=== PATIENT | female | born 1935 | race Caucasian/White ===

== ENCOUNTER 2018-08-27 12:24 | Emergency (ER) | payer MEDICARE, OTHER ==
--- NOTE | 2018-08-27 13:40 | CR ---
[id number] RAD/RAD Pelvis 1-2V Exam: RAD Pelvis 1-2V Indication:FALL, PELVIC PAIN. Comparison: No prior imaging for comparison. Discussion: Rounded lucent structure projects over the pelvis. Correlate for history of pessary. No radiographically evident fracture in the pelvis or proximal femurs. Both femoroacetabular articulations are in normal alignment. There is continued clinical suspicion of a fracture, CT is recommended. Impression: Negative for fracture or other acute findings. Franko Morocho MD 08/27/18 7547 Thank you for allowing us to participate in the care of your patient.
[2018-08-27 13:41] LABS: ANION GAP 14.4 mmol/L (10-20); CHLORIDE,CL 104 mmol/L (98-107); SODIUM,NA 141 mmol/L (136-145)
--- NOTE | 2018-08-27 13:41 | CR ---
[id number] RAD/RAD Chest PA or AP 1V EXAM: RAD Chest PA or AP 1V INDICATION: CONFUSION. COMPARISON: None. DISCUSSION: Mild cardiomegaly and central vascular congestion. Mass projects over the cardiac silhouette, most consistent with a hiatus hernia. No effusion, edema, pneumothorax, or pneumonia. IMPRESSION: No acute findings in the chest. Other findings are described above. Franko Morocho MD 08/27/18 6836 Thank you for allowing us to participate in the care of your patient.
[2018-08-27] MEDS ORDERED: Sulfamethoxazole/Trimethoprim 800-160 MG Tab PO ONE (14:15)
--- NOTE | 2018-08-27 14:51 | EDM.PDOC ---
ED HPI GENERAL MEDICAL PROBLEM - General Chief Complaint: General Time Seen by Provider: 08/27/18 12:30 Source of Information: Reports: Patient History Limitations: Reports: No Limitations - History of Present Illness INITIAL COMMENTS - FREE TEXT/NARRATIVE: Pt. presents to ER with complaints of fall. She states that she was walking over the [employer] to do some shopping when she became weak and fell. She states that she has been weak for the past day. Denies any chest pain or shortness of breath. She states that she did not strike her head. She states that she recalls the entire event. She denies any nausea of vomiting. No headache. Denies any dysuria. No urinary frequency. She resides at [facility] and has home health. Pt. states that she gets her medications from [facility] and has them delivered. EMS states that she was alert and oriented during transport. She initially complained of some buttocks/pelvic pain but this had resolved by the time she got to ER. Onset: Today Onset Date: 08/27/18 Location: Reports: Pelvis - Related Data Allergies Allergy/AdvReac Type Severity Reaction Status Date / Time Penicillins Allergy Rash Verified 11/04/15 15:35 Home Meds: Home Meds Aspirin 325 mg PO DAILY 06/25/13 [History] Docusate Sodium [Colace] 100 mg PO DAILY 06/25/13 [History] Insulin Glarg,Human.Rec.Analog [Lantus] 0 unit SUBCUT DAILY 06/25/13 [History] Loperamide [Imodium] 2 mg PO QID PRN 06/25/13 [History] Loratadine [Claritin] 10 mg PO DAILY 06/25/13 [History] Metoprolol Succinate [Toprol XL] 25 mg PO DAILY 06/25/13 [History] Multivit-Min/FA/Lycopene/Lut [Centrum Silver] 1 each PO DAILY 06/25/13 [History] Nitroglycerin [Nitrostat] 0.4 mg SL ASDIRECTED PRN 06/25/13 [History] Ondansetron [Zofran] 8 mg PO Q8H PRN 06/25/13 [History] Sennosides [Perdiem] 15 mg PO BEDTIME 06/25/13 [History] atorvaSTATin [Lipitor] 60 mg PO BEDTIME 06/25/13 [History] glipiZIDE/Metformin HCl [GlipiZIDE-Metformin 2.5-500 MG] 1 each PO BID 06/25/13 [History] Past Medical History Cardiovascular History: Reports: High Cholesterol, Hypertension Endocrine/Metabolic History: Reports: Diabetes, Type II Hematologic History: Reports: None Immunologic History: Reports: None Oncologic (Cancer) History: Reports: None - Past Surgical History Oncologic Surgical History: Reports: None Social & Family History - Family History Family Medical History: Unobtainable ED ROS GENERAL - Review of Systems Review Of Systems: See Below Constitutional: Reports: No Symptoms HEENT: Reports: No Symptoms Respiratory: Reports: No Symptoms Cardiovascular: Reports: No Symptoms Endocrine: Reports: No Symptoms GI/Abdominal: Reports: No Symptoms : Reports: No Symptoms Musculoskeletal: Reports: Other (pelvic/buttock pain) Skin: Reports: No Symptoms Neurological: Reports: No Symptoms Psychiatric: Reports: No Symptoms Hematologic/Lymphatic: Reports: No Symptoms Immunologic: Reports: No Symptoms ED EXAM, GENERAL - Physical Exam Exam: See Below Exam Limited By: No Limitations General Appearance: Alert, WD/WN, No Apparent Distress Eye Exam: Bilateral Eye: EOMI, Normal Fundi, Normal Inspection, PERRL Ears: Normal External Exam, Normal Canal, Hearing Grossly Normal, Normal TMs Nose: Normal Inspection, Normal Mucosa, No Blood Throat/Mouth: Normal Inspection, Normal Lips, Normal Teeth, Normal Gums, Normal Oropharynx, Normal Voice, No Airway Compromise Head: Atraumatic, Normocephalic Neck: Normal Inspection, Supple, Non-Tender, Full Range of Motion Respiratory/Chest: No Respiratory Distress, Lungs Clear, Normal Breath Sounds, No Accessory Muscle Use, Chest Non-Tender Cardiovascular: Normal Peripheral Pulses, Regular Rate, Rhythm, No Edema, No Gallop, No JVD, No Rub GI/Abdominal: Normal Bowel Sounds, Soft, Non-Tender, No Organomegaly, No Distention, No Mass, Pelvis Stable (Female) Exam: Deferred Rectal (Female) Exam: Deferred Back Exam: Normal Inspection, Full Range of Motion Extremities: Normal Inspection, Normal Range of Motion, Non-Tender, No Pedal Edema, Normal Capillary Refill Neurological: Alert, Oriented, CN II-XII Intact, Normal Cognition, Normal Gait, Normal Reflexes, No Motor/Sensory Deficits Psychiatric: Normal Affect, Normal Mood Skin Exam: Warm, Dry, Intact, Normal Color, No Rash Lymphatic: No Adenopathy Course - Orders/Labs/Meds Labs: Laboratory Tests 08/27/18 08/27/18 08/27/18 Range/Units 12:45 12:45 12:45 WBC 7.5 (4.0-10.0) x10^3/uL RBC 4.26 (4.00-5.50) x10^6/uL Hgb 12.4 (12.0-16.0) g/dL Hct 38.5 (33.0-47.0) % MCV 90.4 (78.0-93.0) fL MCH 29.1 (26.0-32.0) pg MCHC 32.2 (32.0-36.0) g/dL RDW Coeff of Марина 14.7 (10.0-15.0) % Plt Count 230 (130-400) x10^3/uL Neut % (Auto) 80.0 (50.0-80.0) % Lymph % (Auto) 14.6 L (25.0-50.0) % [place] % (Auto) 5.0 (2.0-11.0) % Eos % (Auto) 0.3 (0.0-4.0) % Baso % (Auto) 0.1 L (0.2-1.2) % PT 10.3 (10.0-12.8) SEC INR 0.9 L (2.0-3.5) Sodium (136-145) mmol/L Potassium (3.5-5.1) mmol/L Chloride (98-107) mmol/L Carbon Dioxide (21-32) mmol/L Anion Gap (10-20) mmol/L BUN (7-18) mg/dL Creatinine (0.55-1.02) mg/dL Est Cr Clr Drug Dosing Estimated GFR (MDRD) Glucose (74-106) mg/dL Lactic Acid 1.6 (0.4-2.0) mmol/L Calcium (8.5-10.1) mg/dL Corrected Calcium (8.5-10.1) mg/dL Total Bilirubin (0.2-1.0) mg/dL AST (15-37) U/L ALT (14-59) U/L Alkaline Phosphatase (46-116) U/L C-Reactive Protein (<=0.9) mg/dL Total Protein (6.4-8.2) g/dL Albumin (3.4-5.0) g/dL Globulin Albumin/Globulin Ratio TSH, Ultra Sensitive (0.358-3.74) uIU/mL Urine Color (YELLOW) Urine Appearance (CLEAR) Urine pH (5.0-8.0) Ur Specific [place] Urine Protein (NEGATIVE) mg/dL Urine Glucose (UA) (NEGATIVE) mg/dL Urine Ketones (NEGATIVE) mg/dL Urine Occult Blood (NEGATIVE) Urine Nitrite (NEGATIVE) Urine Bilirubin (NEGATIVE) Urine Urobilinogen (0.2) EU/dL Ur Leukocyte Esterase (NEGATIVE) Urine RBC (NOT SEEN) /HPF Urine WBC (NOT SEEN) /HPF Ur Squamous Epith Cells (NEGATIVE) /HPF Urine Bacteria (NEGATIVE) /HPF Urine Mucus (NEGATIVE) /LPF 08/27/18 08/27/18 08/27/18 Range/Units 12:45 12:45 13:54 WBC (4.0-10.0) x10^3/uL RBC (4.00-5.50) x10^6/uL Hgb (12.0-16.0) g/dL Hct (33.0-47.0) % MCV (78.0-93.0) fL MCH (26.0-32.0) pg MCHC (32.0-36.0) g/dL RDW Coeff of Марина (10.0-15.0) % Plt Count (130-400) x10^3/uL Neut % (Auto) (50.0-80.0) % Lymph % (Auto) (25.0-50.0) % [place] % (Auto) (2.0-11.0) % Eos % (Auto) (0.0-4.0) % Baso % (Auto) (0.2-1.2) % PT (10.0-12.8) SEC INR (2.0-3.5) Sodium 141 (136-145) mmol/L Potassium 4.4 (3.5-5.1) mmol/L Chloride 104 (98-107) mmol/L Carbon Dioxide 27 (21-32) mmol/L Anion Gap 14.4 (10-20) mmol/L BUN 16 (7-18) mg/dL Creatinine 1.1 H (0.55-1.02) mg/dL Est Cr Clr Drug Dosing TNP Estimated GFR (MDRD) 47 Glucose 146 H (74-106) mg/dL Lactic Acid (0.4-2.0) mmol/L Calcium 9.1 (8.5-10.1) mg/dL Corrected Calcium 9.74 (8.5-10.1) mg/dL Total Bilirubin 0.7 (0.2-1.0) mg/dL AST 27 (15-37) U/L ALT 30 (14-59) U/L Alkaline Phosphatase 101 (46-116) U/L C-Reactive Protein 0.9 (<=0.9) mg/dL Total Protein 7.3 (6.4-8.2) g/dL Albumin 3.2 L (3.4-5.0) g/dL Globulin 4.1 Albumin/Globulin Ratio 0.78 TSH, Ultra Sensitive 3.666 (0.358-3.74) uIU/mL Urine Color Yellow (YELLOW) Urine Appearance Clear (CLEAR) Urine pH 7.5 (5.0-8.0) Ur Specific [place] 1.015 Urine Protein 30 H (NEGATIVE) mg/dL Urine Glucose (UA) Negative (NEGATIVE) mg/dL Urine Ketones Negative (NEGATIVE) mg/dL Urine Occult Blood Negative (NEGATIVE) Urine Nitrite Positive H (NEGATIVE) Urine Bilirubin Negative (NEGATIVE) Urine Urobilinogen 1.0 (0.2) EU/dL Ur Leukocyte Esterase Trace H (NEGATIVE) Urine RBC 0-5 (NOT SEEN) /HPF Urine WBC 5-10 H (NOT SEEN) /HPF Ur Squamous Epith Cells Few H (NEGATIVE) /HPF Urine Bacteria Rare (NEGATIVE) /HPF Urine Mucus Few H (NEGATIVE) /LPF Meds: Medications Discontinued Medications Generic Name Dose Route Start Last Admin Trade Name Freq PRN Reason Stop Dose Admin Trimethoprim/Sulfamethoxazole 1 tab 08/27/18 14:15 08/27/18 14:38 Septra Ds PO 08/27/18 14:16 1 tab ONETIME ONE Administration - Radiology Interpretation Free Text/Narrative:: Pelvic radiographs were negative. Portable chest x-ray is negative. Departure - Departure Time of Disposition: 15:00 Disposition: Home, Self-Care 01 Clinical Impression: UTI, Urinary tract infectious disease Fall Qualifiers: Encounter type: initial encounter Qualified Code(s): W19.XXXA - Unspecified fall, initial encounter - Discharge Information Instructions: Urinary Tract Infection, Adult Referrals: PCP,Unknown [Primary Care Provider] - Forms: ED Department Discharge Additional Instructions: Bactrim DS 1 twice daily for 5 days Drink plenty of fluids Follow-up in clinic in 7-10 days for recheck - Assessment/Plan Plan: Pt. is adamant that she be discharged. She was able to ambulate without difficulty using a walker. She was alert to time, date, and place and was aware of her situation, was able to find her medical cards, etc. She would not allow her daughter to be called, but she was alerted, as her mother is in advanced age and she is the POA. I called the daughter and left a message on her voicemail. She requested we call a cab for he which gave her a ride home. Bactrim DS 1 twice daily for 5 days [facility] pharmacy was contacted and they will deliver the meds today. Drink plenty of fluids Follow-up in clinic in 7-10 days for recheck Pt. does get home health. They were contacted and will be in touch and will set up her medications. All questions were answered.
[2018-08-27 18:28] VITALS: BP 166/72
== END 2018-08-27 14:45 | disposition home or self-care (01) ==
LOC: VM.ED 12:24
DX: N39.0 Urinary tract infection, site not specified (principal); E78.00 Pure hypercholesterolemia, unspecified; I10 Essential (primary) hypertension; Z79.82 Long term (current) use of aspirin; Z79.4 Long term (current) use of insulin; Z88.0 Allergy status to penicillin
CPT/HCPCS: 36415; 71045; 72170; 80053; 81001; 83605; 84443; 85025; 85610; 86140; 99285; A9270

== ENCOUNTER 2019-01-16 17:38 | Emergency (ER) | payer MEDICARE, OTHER ==
[2019-01-16] MEDS ORDERED: Sodium Chloride 0.9% 10 ML Syringe FLUSH PRN (17:48)
[2019-01-16] MEDS ORDERED: Lactated Ringers 1,000 ML IV SCH (18:00)
[2019-01-16 18:26] VITALS: BP 158/65; PULSE 72
--- NOTE | 2019-01-16 18:55 | EDM.PDOC ---
ED HPI GENERAL MEDICAL PROBLEM - General Chief Complaint: General Stated Complaint: back hurts Time Seen by Provider: 01/16/19 17:44 Source of Information: Reports: Patient, EMS History Limitations: Reports: No Limitations - History of Present Illness INITIAL COMMENTS - FREE TEXT/NARRATIVE: Patient presents by EMS with complaints of neck and back pain after falling earlier today. She states her walker got to far ahead of her. She did have some dizziness. She denies hitting her head, no LOC, no chest pain or SOB. She did fall on both her knees and the left has a slight abrasion. No other leg or ankle pain. She denies abdominal pain, nausea or vomiting. She does have a strong odor of urine. Lives on her own at the [place]. Onset: Today, Sudden Duration: Intermittent Location: Reports: Back Severity: Mild Associated Symptoms: Reports: No Other Symptoms Headache Pain Score (Numeric/FACES): 6 Neck Pain Score (Numeric/FACES): 2 Lower Back Pain Score (Numeric/FACES): 2 - Related Data Allergies Allergy/AdvReac Type Severity Reaction Status Date / Time Penicillins Allergy Rash Verified 01/16/19 18:17 Home Meds: Home Meds Aspirin 325 mg PO DAILY 06/25/13 [History] Docusate Sodium [Colace] 100 mg PO DAILY 06/25/13 [History] Insulin Glarg,Human.Rec.Analog [Lantus] 0 unit SUBCUT DAILY 06/25/13 [History] Loperamide [Imodium] 2 mg PO QID PRN 06/25/13 [History] Loratadine [Claritin] 10 mg PO DAILY 06/25/13 [History] Metoprolol Succinate [Toprol XL] 25 mg PO DAILY 06/25/13 [History] Multivit-Min/FA/Lycopene/Lut [Centrum Silver] 1 each PO DAILY 06/25/13 [History] Nitroglycerin [Nitrostat] 0.4 mg SL ASDIRECTED PRN 06/25/13 [History] Ondansetron [Zofran] 8 mg PO Q8H PRN 06/25/13 [History] Sennosides [Perdiem] 15 mg PO BEDTIME 06/25/13 [History] atorvaSTATin [Lipitor] 60 mg PO BEDTIME 06/25/13 [History] glipiZIDE/Metformin HCl [GlipiZIDE-Metformin 2.5-500 MG] 1 each PO BID 06/25/13 [History] Past Medical History HEENT History: Reports: Hard of Hearing, Impaired Vision Cardiovascular History: Reports: High Cholesterol, Hypertension Endocrine/Metabolic History: Reports: Diabetes, Type II Hematologic History: Reports: None Immunologic History: Reports: None Oncologic (Cancer) History: Reports: None - Past Surgical History Oncologic Surgical History: Reports: None Social & Family History - Family History Family Medical History: Unobtainable - Tobacco Use Smoking Status *Q: Never Smoker ED ROS GENERAL - Review of Systems Review Of Systems: See Below Constitutional: Reports: No Symptoms HEENT: Reports: No Symptoms Respiratory: Reports: No Symptoms Cardiovascular: Reports: No Symptoms Endocrine: Reports: No Symptoms GI/Abdominal: Reports: No Symptoms : Reports: No Symptoms Musculoskeletal: Reports: Neck Pain, Back Pain Skin: Reports: No Symptoms Neurological: Reports: No Symptoms Psychiatric: Reports: No Symptoms Hematologic/Lymphatic: Reports: No Symptoms Immunologic: Reports: No Symptoms ED EXAM, GENERAL - Physical Exam Exam: See Below Exam Limited By: No Limitations General Appearance: Alert, WD/WN, No Apparent Distress Eye Exam: Bilateral Eye: EOMI, Normal Inspection, PERRL Ears: Normal TMs Ear Exam: Bilateral Ear: TM normal Nose: Normal Inspection, Normal Mucosa, No Blood Throat/Mouth: Normal Inspection, Normal Lips, Normal Teeth, Normal Gums, Normal Oropharynx, Normal Voice, No Airway Compromise Head: Atraumatic, Normocephalic Neck: Normal Inspection, Supple, Non-Tender, Full Range of Motion Respiratory/Chest: No Respiratory Distress, Lungs Clear, Normal Breath Sounds, No Accessory Muscle Use, Chest Non-Tender Cardiovascular: Normal Peripheral Pulses, Regular Rate, Rhythm, No Edema, No Gallop, No JVD, No Murmur, No Rub Peripheral Pulses: 2+: Posterior Tibial (L), Posterior Tibial (R), Dorsalis Pedis (L), Dorsalis Pedis (R) GI/Abdominal: Normal Bowel Sounds, Soft, Non-Tender, No Organomegaly, No Distention, No Abnormal Bruit, No Mass Back Exam: Normal Inspection, Full Range of Motion, NT Extremities: Normal Inspection, Normal Range of Motion, Non-Tender, Normal Capillary Refill, No Pedal Edema Neurological: Alert, Oriented, CN II-XII Intact, Normal Cognition, Normal Gait, Normal Reflexes, No Motor/Sensory Deficits Psychiatric: Normal Affect, Normal Mood Skin Exam: Warm, Dry, Intact, Normal Color, No Rash Lymphatic: No Adenopathy EKG INTERPRETATION EKG Date: 01/16/19 Time: 17:53 Rhythm: NSR Rate (Beats/Min): 67 [place]: Normal P-Wave: Present QRS: LBBB ST-T: Normal QT: Normal Comparison: NA - No Prior EKG Course - Vital Signs Last Recorded V/S: Last Vital Signs Temp 35.4 C 01/16/19 17:42 Pulse 72 01/16/19 17:42 Resp 16 01/16/19 17:42 BP 158/65 H 01/16/19 17:42 Pulse Ox 94 L 01/16/19 17:42 - Orders/Labs/Meds Orders: Active Orders 24 hr Category Date Time Status EKG Documentation Completion [RC] STAT Care 01/16/19 17:48 Ordered Cervical Spine wo Cont [CT] Stat Exams 01/16/19 18:02 Ordered Chest 1V Frontal [CR] Stat Exams 01/16/19 17:48 Ordered Lumbar Spine wo Cont [CT] Stat Exams 01/16/19 18:02 Ordered COMPREHENSIVE METABOLIC PN,CMP [CHEM] Stat Lab 01/16/19 17:48 Ordered MAGNESIUM [CHEM] Stat Lab 01/16/19 17:48 Ordered PRO B-TYPE NATRIUR PEPT,BNPPRO [CHEM] Stat Lab 01/16/19 17:48 Ordered TSH ULTRASENSITIVE [CHEM] Stat Lab 01/16/19 17:48 Ordered UA W/MICROSCOPIC [URIN] Stat Lab 01/16/19 17:48 Ordered Lactated Ringers @ 150 MLS/HR(1,000ml) Med 01/16/19 18:00 Ordered Lactated Ringers [Ringers, Lactated] 1,000 ml IV ASDIRECTED Sodium Chloride 0.9% [Saline Flush] Med 01/16/19 17:48 Ordered 10 ml FLUSH ASDIRECTED PRN Saline Lock Insert [OM.PC] Routine Oth 01/16/19 17:48 Ordered Medication Orders Lactated Ringer's (Ringers, Lactated) 1,000 mls @ 150 mls/hr IV ASDIRECTED NIDA Last Admin: 01/16/19 18:09 Dose: 150 mls/hr Sodium Chloride (Saline Flush) 10 ml FLUSH ASDIRECTED PRN PRN Reason: Keep Vein Open Labs: Laboratory Tests 01/16/19 Range/Units 18:11 WBC 10.9 H (4.0-10.0) x10^3/uL RBC 4.26 (4.00-5.50) x10^6/uL Hgb 12.6 (12.0-16.0) g/dL Hct 38.3 (33.0-47.0) % MCV 89.9 (78.0-93.0) fL MCH 29.6 (26.0-32.0) pg MCHC 32.9 (32.0-36.0) g/dL RDW Coeff of Марина 13.3 (10.0-15.0) % Plt Count 248 (130-400) x10^3/uL Neut % (Auto) 71.2 (50.0-80.0) % Lymph % (Auto) 19.6 L (25.0-50.0) % [place] % (Auto) 8.1 (2.0-11.0) % Eos % (Auto) 0.8 (0.0-4.0) % Baso % (Auto) 0.3 (0.2-1.2) % Meds: Medications Generic Name Dose Route Start Last Admin Trade Name Freq PRN Reason Stop Dose Admin Lactated Ringer's 1,000 mls @ 150 mls/hr 01/16/19 18:00 01/16/19 18:09 Ringers, Lactated IV 150 mls/hr ASDIRECTED NIDA Administration Sodium Chloride 10 ml 01/16/19 17:48 Saline Flush FLUSH ASDIRECTED PRN Keep Vein Open - Radiology Interpretation Free Text/Narrative:: Review of x-ray and CT scans are negative for acute processes Departure - Departure Time of Disposition: 20:21 Disposition: Home, Self-Care 01 Condition: Good Clinical Impression: UTI, Urinary tract infectious disease Fall Qualifiers: Encounter type: initial encounter Qualified Code(s): W19.XXXA - Unspecified fall, initial encounter - Discharge Information *PRESCRIPTION DRUG MONITORING PROGRAM REVIEWED*: Not Applicable *COPY OF PRESCRIPTION DRUG MONITORING REPORT IN PATIENT JOSE J: Not Applicable Instructions: Urinary Tract Infection, Adult, [id number], Nitrofurantoin tablets or capsules Forms: ED Department Discharge Additional Instructions: Plan 1. Take 1 tablet of the macrobid twice a day until gone 2. Stay well hydrated 3. Use your walker at all times 4. Make sure to eat regularly 5. Someone will contact you if the antibiotic needs to be changed 6. Call if you have any questions or concerns - Problem List & Annotations (1) UTI, Urinary tract infectious disease SNOMED Code(s): 80394061 Code(s): N39.0 - URINARY TRACT INFECTION, SITE NOT SPECIFIED Status: Acute Priority: Low Current Visit: Yes (2) Fall SNOMED Code(s): 5299820, 502859124 Code(s): W19.XXXA - UNSPECIFIED FALL, INITIAL ENCOUNTER Status: Acute Priority: Low Current Visit: Yes Qualifiers: Encounter type: initial encounter Qualified Code(s): W19.XXXA - Unspecified fall, initial encounter - Problem List Review Problem List Initiated/Reviewed/Updated: Yes - My Orders Last 24 Hours: My Active Orders 01/16/19 17:48 EKG Documentation Completion [RC] STAT Chest 1V Frontal [CR] Stat COMPREHENSIVE METABOLIC PN,CMP [CHEM] Stat MAGNESIUM [CHEM] Stat PRO B-TYPE NATRIUR PEPT,BNPPRO [CHEM] Stat TSH ULTRASENSITIVE [CHEM] Stat UA W/MICROSCOPIC [URIN] Stat Sodium Chloride 0.9% [Saline Flush] 10 ml FLUSH ASDIRECTED PRN Saline Lock Insert [OM.PC] Routine 01/16/19 18:00 Lactated Ringers @ 150 MLS/HR(1,000ml) Lactated Ringers [Ringers, Lactated] 1, 000 ml IV ASDIRECTED 01/16/19 18:02 Cervical Spine wo Cont [CT] Stat Lumbar Spine wo Cont [CT] Stat - Assessment/Plan Last 24 Hours: My Active Orders 01/16/19 17:48 EKG Documentation Completion [RC] STAT Chest 1V Frontal [CR] Stat COMPREHENSIVE METABOLIC PN,CMP [CHEM] Stat MAGNESIUM [CHEM] Stat PRO B-TYPE NATRIUR PEPT,BNPPRO [CHEM] Stat TSH ULTRASENSITIVE [CHEM] Stat UA W/MICROSCOPIC [URIN] Stat Sodium Chloride 0.9% [Saline Flush] 10 ml FLUSH ASDIRECTED PRN Saline Lock Insert [OM.PC] Routine 01/16/19 18:00 Lactated Ringers @ 150 MLS/HR(1,000ml) Lactated Ringers [Ringers, Lactated] 1, 000 ml IV ASDIRECTED 01/16/19 18:02 Cervical Spine wo Cont [CT] Stat Lumbar Spine wo Cont [CT] Stat Assessment:: Fall Urinary tract infection Plan: Plan 1. Take 1 tablet of the macrobid twice a day until gone 2. Stay well hydrated 3. Use your walker at all times 4. Make sure to eat regularly 5. Someone will contact you if the antibiotic needs to be changed 6. Call if you have any questions or concerns
--- NOTE | 2019-01-16 18:56 | CR ---
[id number] RAD/RAD Chest PA or AP 1V EXAM: RAD Chest PA or AP 1V INDICATION: FALL, DIZZINESS COMPARISON: None. DISCUSSION: Cardiomediastinal silhouette is stable in size and contour. No infiltrate, effusion, pneumothorax, or edema. Hyperinflation. Left basilar subsegmental atelectasis and/or scarring. IMPRESSION: No acute cardiopulmonary abnormality. Lux Jaffe DO 01/16/19 1408 Thank you for allowing us to participate in the care of your patient.
--- NOTE | 2019-01-16 18:59 | CT ---
[id number] CT/CT Cervical Spine WO IV Exam: CT Cervical Spine WO IV CLINICAL DATA: FALL. COMPARISON: None. FINDINGS: No fracture or subluxation is seen. The C1-C2 articulation is unremarkable. The prevertebral soft tissues are within normal limits. Multilevel degenerative changes of the cervical spine including loss of disc space height, facet arthropathy and endplate osteophytosis. These findings are most pronounced at C5-C6. IMPRESSION: NO ACUTE FRACTURE OR SUBLUXATION. Lux Jaffe DO 01/16/19 [id number] Thank you for allowing us to participate in the care of your patient.
[2019-01-16] MEDS ORDERED: Nitrofurantoin Monohydrate/Macrocrystalline 100 MG Cap PO ONE (19:03)
--- NOTE | 2019-01-16 19:09 | CT ---
[id number] CT/CT Lumbar Spine WO IV EXAM: CT lumbar spine without contrast. INDICATION: Fall. COMPARISON: No previous similar exam is available for comparison. FINDINGS: No acute fracture or subluxation is seen. 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 Grade 1 retrolisthesis of L2 over L3, L3 over L4, L4 over L5. Grade 1 anterolisthesis of L5 over S1. Multilevel degenerative changes of the lumbar spine including loss of disc space height, facet arthropathy and endplate osteophytosis. There is multilevel spinal canal and neuroforaminal stenosis. This is most pronounced at L3-L4 and L4-L5 on the left where there is moderate to severe neuroforaminal stenosis. No definite high-grade spinal canal stenosis. Visualized soft tissues are unremarkable. Atherosclerotic calcifications of aorta and its branches. IMPRESSION: NO ACUTE FRACTURE OR SUBLUXATION. CHRONIC CHANGES ABOVE. Lux Jaffe DO 01/16/19 [id number] Thank you for allowing us to participate in the care of your patient.
[2019-01-16 19:15] LABS: ANION GAP 13.7 mmol/L (10-20)
[2019-01-16] MEDS ORDERED: Take Home: Nitrofurantoin Monohydrate/Macrocrystalline 100 MG, 2 Cap Pack PO ONE (19:18)
== END 2019-01-16 20:21 | disposition home or self-care (01) ==
LOC: VM.ED 17:38
DX: N39.0 Urinary tract infection, site not specified (principal); M54.2 Cervicalgia; I10 Essential (primary) hypertension; E11.9 Type 2 diabetes mellitus without complications; E78.00 Pure hypercholesterolemia, unspecified; Z88.0 Allergy status to penicillin; Z79.82 Long term (current) use of aspirin; Z79.4 Long term (current) use of insulin; Z79.899 Other long term (current) drug therapy; W19.XXXA Unspecified fall, initial encounter
CPT/HCPCS: 36415; 71045; 72125; 72131; 80053; 81001; 83735; 83880; 84443; 85025; 87086; 93005; 93010; 96360; 96361; 99284-GF; 99285-25; A9270-GY; J7120

== ENCOUNTER 2019-12-16 12:14 | Inpatient (IN) | payer MEDICARE, OTHER ==
[2019-12-16] MEDS ORDERED: Sodium Chloride 0.9% 10 ML Syringe FLUSH PRN ×2 (13:25)
[2019-12-16 14:30] LABS: CHLORIDE,CL 102 mmol/L (98-107); SODIUM,NA 141 mmol/L (136-145)
[2019-12-16 14:31] LABS: ANION GAP 15.1 mmol/L (10-20)
[2019-12-16] MEDS ORDERED: Albuterol/Ipratropium 3.0-0.5 MG/3 ML Neb Soln NEB PRN (14:39)
[2019-12-16] MEDS ORDERED: Docusate Sodium 100 MG Cap PO PRN (14:44)
--- NOTE | 2019-12-16 14:57 | CR ---
[id number] RAD/RAD Chest PA or AP 1V EXAM: RAD Chest PA or AP 1V INDICATION: SHORT OF BREATH. COMPARISON: December 2018. DISCUSSION: Cardiomediastinal silhouette is unchanged in size and contour compared to the prior examination. Bibasal parenchymal opacities left greater than right. Findings were not seen previously. Differential diagnosis includes atelectasis, pneumonia, aspiration, or less likely edema. Changes of edema are expected to be more perihilar in location rather than isolated to the lung bases. IMPRESSION: As above. Franko Morocho MD 12/16/19 [id number] Thank you for allowing us to participate in the care of your patient.
[2019-12-16] MEDS ORDERED: Magnesium Sulfate/Water 4 GM in Premix Bag 1 BAG IV ONE (15:00)
[2019-12-16] MEDS ORDERED: Polyethylene Glycol 3350 Powder 17 GM Packet PO PRN (15:09)
[2019-12-16] MEDS: Albuterol/Ipratropium 3.0-0.5 MG/3 ML Neb Soln NEB SCH ×3 (15:18→20:57)
[2019-12-16] MEDS: Nystatin Crm 30 GM Tube TOP SCH ×2 (15:18→19:38)
[2019-12-16] MEDS: Sodium Chloride 0.9% 1,000 ML IV SCH (15:18)
[2019-12-16] MEDS: Acetaminophen 325 MG Tab PO PRN (15:19)
[2019-12-16] MEDS: cefTRIAXone 1 GM Vial IVPUSH SCH (15:19)
--- NOTE | 2019-12-16 18:27 | HP ---
This dictation is an admission history and physical to the acute care floor at [facility]. CHIEF COMPLAINT: 1. Shortness of breath. 2. Leg weakness. HISTORY OF PRESENT ILLNESS: This 84-year-old female patient presented to the [facility] earlier today for the above-mentioned complaint. The patient states that her symptoms started earlier this morning. The patient states that she was feeling short of breath and had leg weakness and generally was not feeling well. The patient was seen in the clinic and her white blood cell count was around 17,000 and her chest x-ray appeared to have a left lower lobe pneumonia. The patient was sent to [facility] acute care floor via EMS. The patient states that she is feeling very tired. She feels somewhat short of breath at rest. The patient states that her legs feel weak. The patient denies any cough. No recent travel. No close family members with similar symptoms. The patient denies any headaches, dizziness, or lightheadedness. The patient does not have a history of COPD. The patient denies any chest pain. The patient has chronic bilateral lower extremity leg swelling. The patient has not had any palpitations. PAST MEDICAL HISTORY: 1. Hypertension. 2. Hyperlipidemia. 3. Hypertonicity of bladder. 4. Stress incontinence. 5. Type 2 diabetes. 6. Osteopenia. 7. Popliteal cyst on the left. 8. Umbilical hernia without obstruction and without gangrene. 9. Primary osteoarthritis of both knees. 10.Osteoarthritis of cervical spine. 11.Hiatal hernia. 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 PAST SURGICAL HISTORY: Unknown. FAMILY HISTORY: Noncontributory. ACTIVE PROBLEM LIST: 1. Type 2 diabetes with neurological complication, with long-term use of insulin. 2. Hypertension associated with diabetes. 3. Hyperlipidemia associated with type 2 diabetes. 4. Stress incontinence, female. 5. Osteopenia. LABORATORY WORK: 1. CBC: White blood cell count 14.5, hemoglobin 11.9, hematocrit 35.7, platelets are 291,000. 2. CMP: Sodium is 141, potassium 4.1, chloride 102, CO2 is 28, anion gap is 15.1, BUN is 19, creatinine 1.0, GFR is 53, glucose 79, calcium 9.0, AST is 48, ALT 44, alkaline phosphatase 107, protein is 7.1. 3. Lactic acid 1.2. 4. Phosphorus 2.3. 5. Magnesium 1.1. 6. C-reactive protein 1.7. 7. Troponin 0.033. 8. Urinalysis is unremarkable. IMAGING STUDIES: Chest x-ray, 1 view, reveals bilateral lower lobe pneumonia. ALLERGIES: None. MEDICATIONS: 1. Acetaminophen 650 mg 1 tablet p.o. every 4 hours as needed. 2. DuoNeb every 4 hours scheduled. 3. DuoNeb every 2 hours as needed. 4. Lipitor 60 mg p.o. at bedtime daily. 5. Zithromax 500 mg IV daily. 6. Rocephin 1 g IV daily. 7. Docusate sodium 100 mg 1 tablet p.o. daily as needed. 8. Lovenox 40 mg subcu daily at bedtime. 9. Lasix 20 mg 1 tablet p.o. daily. 10.Insulin glargine 46 units subcu at bedtime daily. 11.Magnesium 4 g IV x1. 12.Metformin 850 mg 1 tablet p.o. twice daily. 13.Metoprolol 25 mg 1 tablet p.o. daily. 14.Nystatin 1 g topical twice daily. 15.Omeprazole 20 mg 1 tablet p.o. daily. 16.MiraLAX 17 g p.o. daily as needed. REVIEW OF SYSTEMS: Constitutional: negative Skin: negative Respiratory: SOB, some mild SILVERIO Cardiovascular: negative Abdomen: negative Neurological: negative PHYSICAL EXAM: General: alert, no acute distress, cooperative Skin: warm, dry, intact Respiratory: bilateral base crackles, scattered rhonchi throughout Cardiovascular: RRR, systolic murmur Abdomen: non tender, BS hypoactive x4 Neurological: alert, oriented x3, no focal neurological deficits ASSESSMENT: 1. Sepsis secondary to bilateral lower lobe pneumonia, unknown organism. 2. Acute respiratory failure secondary to pneumonia and hypoxia. 3. Leukocytosis. 4. Hypomagnesemia. 5. Dehydration. 6. Fevers. 7. Diabetes mellitus type 2 with neurological complications with long-term use of insulin. 8. Hypertension associated with diabetes. 9. Hyperlipidemia associated with type 2 diabetes. 10.Osteopenia. PLAN: The patient will be admitted to the acute care floor at [facility]. The patient will be started on the sepsis protocol. We will start the patient on IV Rocephin and Zithromax. Consult Respiratory Therapy. Start IV fluids at 75 mL an hour of normal saline. Cough and deep breathe every 2 hours. We will schedule DuoNeb every 4 hours. Recheck laboratory work tomorrow morning. We will replace the magnesium with 4 g IV today. The patient will be on a diabetic diet. The patient is a code 2. The patient does wish to be transferred to higher level of care should the need arise. We will follow daily. This patient was seen and examined by me as an [facility] provider. TB: 12/16/2019 15:00:47 MODL: 12/16/2019 18:10:26 /[id number]
[2019-12-16] MEDS: Azithromycin 500 MG in Sodium Chloride 0.9% 250 ML IV SCH (19:35)
[2019-12-16] MEDS: Enoxaparin 40 MG/0.4 ML Syringe SUBCUT SCH (19:35)
[2019-12-16] MEDS: Insulin Glarg,Human.Rec.Analog 100 Unit/ML SUBCUT SCH (19:36)
[2019-12-16] MEDS: atorvaSTATin 40 MG Tab PO SCH (19:37)
[2019-12-17] MEDS: Albuterol/Ipratropium 3.0-0.5 MG/3 ML Neb Soln NEB SCH ×6 (00:27→20:18)
[2019-12-17] MEDS: Sodium Chloride 0.9% 1,000 ML IV SCH ×2 (05:31→20:00)
[2019-12-17] MEDS: Omeprazole 20 MG Cap.CR PO SCH (06:34)
[2019-12-17 07:12] LABS: ANION GAP 14.2 mmol/L (10-20)
[2019-12-17] MEDS: Furosemide 20 MG Tab PO SCH (08:26)
[2019-12-17] MEDS: Metoprolol Succinate 25 MG Tab.ER PO SCH (08:27)
[2019-12-17] MEDS: Nystatin Crm 30 GM Tube TOP SCH ×3 (08:27→21:07)
--- NOTE | 2019-12-17 12:26 | PN ---
Progress Note for SUNG BUTTS Date: 12/17/2019 Room #: VM.204 CHIEF COMPLAINT: Shortness of breath. SUBJECTIVE: The patient states today that she is feeling better. She denies any shortness of breath. The patient does not have any cough. She feels that her fever has resolved. She does feel weak. Appetite has been good. She has a Morgan catheter in place for monitoring urine output. REVIEW OF SYSTEMS: General: Negative. Respiratory: Negative. Cardiovascular: Negative. Abdomen: Negative. Skin: Negative. Neurological: Negative. PHYSICAL EXAMINATION: General Presentation: The patient is alert. The patient is cooperative. The patient does not appear to be in any acute distress. Respiratory: Bibasilar crackles with scattered rhonchi. Otherwise, lung sounds are decreased throughout. Cardiovascular: Regular rate and rhythm, no murmur. Abdomen: Soft, nontender. Bowel sounds are hypoactive x4. Skin: Warm, dry, and intact. Neurological: The patient is alert. The patient is oriented to person, place, and time. Vital Signs: Temperature 97.0, blood pressure 114/55, pulse is 74, respiratory rate 22, oxygen saturation 93% on 4 L. LABORATORY STUDIES: 1. CBC: White blood cell count 13.3, hemoglobin 9.7, hematocrit 30.3, platelets are 236,000. 2. BMP: Sodium is 140, potassium 4.2, chloride 104, CO2 is 26, anion gap 14.2, BUN is 21, creatinine 1.1, GFR is 47, calcium 8.1. 3. Magnesium 2.5. ASSESSMENT: 1. Sepsis secondary to bilateral lower lobe pneumonia, unknown organism. 2. Acute respiratory failure secondary to pneumonia and hypoxia. 3. Leukocytosis. 4. Hypomagnesemia. 5. Dehydration. 6. Fevers. 7. 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 8. Hypertension associated with diabetes. 9. Hyperlipidemia associated with type 2 diabetes. 10.Osteopenia. PLAN: Continue with acute cares for now. Continue with IV Rocephin and IV Zithromax. We will recheck laboratory work tomorrow. The patient needs to get out of bed and ambulate today. Continue with IV fluids to ensure adequate hydration. The patient is a code 2. The patient does wish to transfer to a higher level of care should the need arise. We will follow daily. This patient was seen and examined by me as an [facility] provider. TB: 12/17/2019 07:50:34 MODL: 12/17/2019 12:19:09 /[id number]
[2019-12-17] MEDS: Azithromycin 500 MG in Sodium Chloride 0.9% 250 ML IV SCH (14:58)
[2019-12-17] MEDS: cefTRIAXone 1 GM Vial IVPUSH SCH (14:58)
[2019-12-17] MEDS: Acetaminophen 325 MG Tab PO PRN (18:26)
[2019-12-17] MEDS: atorvaSTATin 40 MG Tab PO SCH (20:04)
[2019-12-17] MEDS: Enoxaparin 40 MG/0.4 ML Syringe SUBCUT SCH (20:04)
[2019-12-17] MEDS: Insulin Glarg,Human.Rec.Analog 100 Unit/ML SUBCUT SCH (20:22)
[2019-12-17] MEDS: Miconazole 2% Top Powder 45 GM Container TOP SCH (22:21)
[2019-12-18] MEDS: Albuterol/Ipratropium 3.0-0.5 MG/3 ML Neb Soln NEB SCH ×6 (01:46→20:34)
[2019-12-18] MEDS: Omeprazole 20 MG Cap.CR PO SCH (06:01)
[2019-12-18] MEDS: Furosemide 20 MG Tab PO SCH (08:17)
[2019-12-18] MEDS: Metoprolol Succinate 25 MG Tab.ER PO SCH (08:17)
[2019-12-18] MEDS: Miconazole 2% Top Powder 45 GM Container TOP SCH ×2 (08:18→20:27)
[2019-12-18] MEDS: Nystatin Crm 30 GM Tube TOP SCH ×2 (08:18→20:35)
[2019-12-18 08:24] LABS: ANION GAP 11.2 mmol/L (10-20)
[2019-12-18] MEDS: Sodium Chloride 0.9% 1,000 ML IV SCH (09:37)
--- NOTE | 2019-12-18 10:42 | PN ---
Progress Note for SUNG BUTTS Date: 12/18/2019 Room #: VM.204 CHIEF COMPLAINT: Shortness of breath. SUBJECTIVE: The patient is feeling better today. The patient states that her shortness of breath has improved. The patient has developed a productive cough. She feels that her fever has resolved. The patient does have considerable weakness. Her appetite has been good. She has a Morgan catheter in place for monitoring urine output. REVIEW OF SYSTEMS: General: Negative. Respiratory: Negative. Cardiovascular: Negative. Abdomen: Negative. Skin: Negative. Neurological: Negative. PHYSICAL EXAMINATION: General Presentation: The patient is alert. The patient is cooperative. The patient does not appear to be in any acute distress. Respiratory: The patient continues to have bibasilar crackles with scattered rhonchi throughout. Otherwise, lung sounds are decreased. Cardiovascular: Regular rate and rhythm. No murmur. Abdomen: Soft, nontender. Bowel sounds are hypoactive x4. Skin: Warm, dry, and intact. Neurologic: The patient is alert. The patient is oriented to person, place, and time. Vital Signs: Temperature is 97.9, blood pressure 141/65, oxygen saturation 95% on 2 L, respiratory rate is 20, pulse is 73. LABORATORY WORK: CBC: White blood cell count 8.9, hemoglobin 9.8, hematocrit 31.4, platelets are 252,000. BMP: Sodium 142, potassium 4.2, chloride 106, CO2 is 29, anion gap is 11.2, BUN is 13, creatinine 1.1, GFR is 47, glucose 132, calcium is 8.2. ASSESSMENT: 1. Sepsis secondary to bilateral lower lobe pneumonia, unknown organism. 2. Acute respiratory failure secondary to pneumonia and hypoxia. 3. Leukocytosis. 4. Hypomagnesemia - resolved. 5. Dehydration. 6. Fevers - resolved. 7. 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 8. Hypertension associated with diabetes. 9. Hyperlipidemia associated with type 2 diabetes. 10.Osteopenia. PLAN: This is hospital day #3 for an 84-year-old female patient, who was admitted with the above diagnosis. We will continue with acute cares for now. The patient will continue on IV Rocephin and IV Zithromax. We will recheck laboratory work tomorrow. Continue ambulating the patient. Continue with nebulizers and incentive spirometry. The patient is a code 2. The patient does wish to transfer to higher level of care should the need arise. We will continue to follow. This patient was seen and examined by me as an [facility] provider. TB: 12/18/2019 08:40:03 MODL: 12/18/2019 09:14:50 /[id number]
[2019-12-18] MEDS: cefTRIAXone 1 GM Vial IVPUSH SCH (15:08)
[2019-12-18] MEDS: Azithromycin 500 MG in Sodium Chloride 0.9% 250 ML IV SCH (15:10)
[2019-12-18] MEDS: atorvaSTATin 40 MG Tab PO SCH (20:28)
[2019-12-18] MEDS: Enoxaparin 40 MG/0.4 ML Syringe SUBCUT SCH (20:30)
[2019-12-18] MEDS: Insulin Glarg,Human.Rec.Analog 100 Unit/ML SUBCUT SCH (20:40)
[2019-12-19] MEDS: Albuterol/Ipratropium 3.0-0.5 MG/3 ML Neb Soln NEB SCH ×3 (01:55→09:39)
[2019-12-19] MEDS ORDERED: Glucose Gel 15 GM in 37.5 GM Tube ONE (02:25)
[2019-12-19] MEDS ORDERED: 50% Dextrose in Water 50 ML Syringe IV STA (02:26)
[2019-12-19] MEDS ORDERED: 50% Dextrose in Water 50 ML Syringe ONE (02:31)
[2019-12-19] MEDS: Omeprazole 20 MG Cap.CR PO SCH (06:26)
[2019-12-19 08:36] LABS: ANION GAP 10.3 mmol/L (10-20)
[2019-12-19] MEDS: Furosemide 20 MG Tab PO SCH (09:40)
[2019-12-19] MEDS: Metoprolol Succinate 25 MG Tab.ER PO SCH (09:40)
[2019-12-19] MEDS: Nystatin Crm 30 GM Tube TOP SCH (09:41)
[2019-12-19] MEDS: Miconazole 2% Top Powder 45 GM Container TOP SCH (09:41)
[2019-12-19] MEDS ORDERED: Take Home: Azithromycin 250 MG, 2 Tab Pack PO ONE (10:41)
[2019-12-19 11:48] VITALS: BP 153/76; PULSE 92
--- NOTE | 2019-12-19 11:58 | DISCH ---
CHIEF COMPLAINT: Shortness of breath. DATE OF DISCHARGE: 12/19/2019 DATE OF ADMISSION: 12/16/2019 DISPOSITION: Discharge home from [place], [place] HISTORY OF PRESENT ILLNESS: This 84-year-old female patient was seen at the [facility] on 12/16/2019 and was diagnosed with pneumonia. The patient was admitted to the acute care floor at [facility] for further treatment. The patient states her symptoms had started that day. Therefore, she made the appointment at the clinic to be seen. The patient did have an elevated white cell count in the clinic of 17.0 and chest x-ray did appear to have a left lower lobe pneumonia. HOSPITAL COURSE: The patient remained hemodynamically stable. The patient did have 1 bout of low blood sugar the evening before discharge. Otherwise, everything remained stable. The patient did not have any issues with urination or bowel movements. The patient's laboratory work stayed stable. Her white cell count did normalize. CONSULTATIONS: Physical and Occupational Therapy. REVIEW OF SYSTEMS: Constitutional: Negative. Skin: Negative. Respiratory: Negative. Cardiovascular: Negative. Abdomen: Negative. Skin: Negative. Neurological: Negative. DISCHARGE PHYSICAL EXAMINATION: Vital Signs: Temperature 97.7, blood pressure 150/61, respiratory rate 17, oxygen 95%, pulse is 86. General: The patient is alert. The patient is not in any acute distress. The patient is cooperative. Skin: Warm, dry, and intact. Respiratory: Lungs are clear, but decreased throughout. Cardiovascular: Regular rate and rhythm, no murmur. Abdomen: Soft, nontender. Bowel sounds are normoactive x4. Neurological: The patient is alert. The patient is oriented to person, place, and time. DISCHARGE LABORATORY WORK: 1. CBC: White blood cell count 8.7, hemoglobin 10.3, hematocrit 32.8, platelets are 263,000. 2. BMP: Sodium 140, potassium 4.3, chloride 104, CO2 of 30, anion gap is 10.3, BUN 12, creatinine 1.0, GFR is 53, glucose is 161, calcium 8.5. DISCHARGE IMAGING STUDIES: None. ASSESSMENT: 1. Sepsis secondary to bilateral lower lobe pneumonia, unknown origin- resolved. 2. Acute respiratory failure secondary to pneumonia and hypoxia-resolved. 3. Leukocytosis-resolved. 4. Hypomagnesemia-resolved. 5. Dehydration-resolved. 6. Fevers-resolved. 7. 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 8. Hypertension associated with diabetes. 9. Hyperlipidemia associated with type 2 diabetes. 10.Osteopenia. PLAN: The patient will be discharged home today. She will need to follow up with her PCP in 1 week. We will continue the patient on a Z-Sean for home which she will start tomorrow. No other changes with home medications. The patient was discharged in hemodynamic stable condition. This patient was seen and examined by me as an [facility] provider. TB: 12/19/2019 09:25:48 MODL: 12/19/2019 11:37:29 /[id number] MTDD
== END 2019-12-19 11:15 | disposition home or self-care (01) | DRG 871 ==
LOC: VM.MS 13:27
PROVIDERS: ADMIT Nurse Practitioner Family; ATTEND Nurse Practitioner Family
DX: A41.9 Sepsis, unspecified organism (principal); J18.9 Pneumonia, unspecified organism; J96.01 Acute respiratory failure with hypoxia; E86.0 Dehydration; E83.42 Hypomagnesemia; E78.5 Hyperlipidemia, unspecified; Z20.828 Contact with and (suspected) exposure to other viral communicable diseases; E11.9 Type 2 diabetes mellitus without complications; M85.80 Other specified disorders of bone density and structure, unspecified site; I10 Essential (primary) hypertension; Z79.4 Long term (current) use of insulin
CPT/HCPCS: 36415; 51702; 71045; 80048; 80053; 81001; 82962; 83605; 83735; 84100; 84145; 84484; 85025; 86140; 87040; 93005; 94640; 94760; 97161-GP; 97165-GO; A9270-GY; J0456; J0696; J1650; J1815-GY; J3475; J7030; J7050; J7620-GY; U0002

== ENCOUNTER 2022-04-13 16:43 | Inpatient (IN) | payer MEDICARE, OTHER ==
[2022-04-13] MEDS ORDERED: Sodium Chloride 0.9% 10 ML Syringe FLUSH PRN (17:07)
[2022-04-13 17:49] LABS: PTT,PARTIAL THROMBOPLSTIN TIME 21.3 SEC (20.5-30.9)
[2022-04-13 17:51] LABS: CHLORIDE,CL 95 mmol/L (98-107); SODIUM,NA 134 mmol/L (136-145)
[2022-04-13 17:52] LABS: ANION GAP 15.7 mmol/L (5-15)
[2022-04-13 17:53] LABS: ESTIMATED GFR 40 mL/min (>=60)
[2022-04-13 18:08] LABS: CORONAVIRUS COVID-19 NAA NEGATIVE (NEGATIVE)
[2022-04-13 18:09] LABS: RESPIRATORY SYNCYTIAL VIR NAA NEGATIVE (NEGATIVE)
[2022-04-13] MEDS ORDERED: cefTRIAXone 2 GM Vial IVPUSH ONE (19:49)
[2022-04-13] MEDS ORDERED: Sodium Chloride 0.9% 1,000 ML IV SCH (21:00)
[2022-04-13] MEDS ORDERED: LORazepam 1 MG Tab PO PRN (21:18)
[2022-04-13] MEDS: Azithromycin 500 MG in Sodium Chloride 0.9% 250 ML IV SCH (21:27)
[2022-04-13] MEDS ORDERED: Enoxaparin 40 MG/0.4 ML Syringe SUBCUT ONE (21:45)
[2022-04-14] MEDS ORDERED: Acetaminophen 500 MG Tab PO PRN (01:10)
[2022-04-14] MEDS ORDERED: Docusate Sodium 100 MG Cap PO PRN (01:10)
[2022-04-14] MEDS ORDERED: 50% Dextrose in Water 50 ML Syringe IVPUSH PRN ×4 (01:10→21:59)
[2022-04-14] MEDS ORDERED: Polyethylene Glycol 3350 Powder 17 GM Packet PO PRN (01:10)
[2022-04-14] MEDS ORDERED: Glucagon,Human Recombinant 1 MG Vial IM PRN ×4 (01:10→21:59)
[2022-04-14] MEDS ORDERED: Acetaminophen/Aspirin/Caffeine 250-250-65 MG Tab PO PRN (01:10)
[2022-04-14] MEDS: Sodium Chloride 0.9% 1,000 ML IV SCH ×3 (02:24→23:49)
[2022-04-14] MEDS: Triamcinolone Acetonide 0.1% Crm 15 GM Tube TOP SCH ×2 (08:10→20:29)
[2022-04-14] MEDS: Betamethasone Dipropionate/Clotrimazole 0.05-1% Crm 15 GM Tube TOP SCH ×2 (08:11→20:28)
[2022-04-14] MEDS: Lisinopril 10 MG Tab PO SCH (08:15)
[2022-04-14] MEDS: Vitamin B Complex Tab PO SCH ×2 (08:15→20:27)
[2022-04-14] MEDS: Enoxaparin 30 MG/0.3 ML Syringe SUBCUT SCH (08:15)
[2022-04-14] MEDS: Hydrochlorothiazide 12.5 MG Cap PO SCH (08:15)
[2022-04-14] MEDS: Multivitamin Tab PO SCH (08:16)
[2022-04-14 08:32] LABS: ANION GAP 13.3 mmol/L (5-15)
[2022-04-14] MEDS ORDERED: Pantoprazole 20 MG Tab, Delayed Release PO SCH (09:00)
[2022-04-14] MEDS ORDERED: Insulin Regular, Human 100 Units/ML 3 ML Vial IVPUSH ONE ×2 (11:56→21:29)
[2022-04-14] MEDS: cefTRIAXone 1 GM Vial IVPUSH SCH (20:15)
[2022-04-14] MEDS: Azithromycin 500 MG in Sodium Chloride 0.9% 250 ML IV SCH (20:30)
[2022-04-14] MEDS ORDERED: Insulin Glarg,Human.Rec.Analog 100 Unit/ML SUBCUT SCH (21:00)
[2022-04-14] MEDS ORDERED: atorvaSTATin 40 MG Tab PO SCH (21:00)
[2022-04-15] MEDS: Hydrochlorothiazide 12.5 MG Cap PO SCH (08:43)
[2022-04-15] MEDS: Sodium Chloride 0.9% 1,000 ML IV SCH (08:43)
[2022-04-15] MEDS: cefTRIAXone 1 GM Vial IVPUSH SCH (08:43)
[2022-04-15] MEDS: Enoxaparin 30 MG/0.3 ML Syringe SUBCUT SCH (08:43)
[2022-04-15] MEDS: Vitamin B Complex Tab PO SCH (08:43)
[2022-04-15] MEDS: Lisinopril 10 MG Tab PO SCH (08:44)
[2022-04-15] MEDS: Multivitamin Tab PO SCH (08:44)
[2022-04-15] MEDS: Betamethasone Dipropionate/Clotrimazole 0.05-1% Crm 15 GM Tube TOP SCH (08:47)
[2022-04-15] MEDS: Triamcinolone Acetonide 0.1% Crm 15 GM Tube TOP SCH (08:47)
[2022-04-15] MEDS ORDERED: Insulin Lispro 100 Units/ML 3 ML Vial SUBCUT SCH (09:00)
[2022-04-15] MEDS ORDERED: Pantoprazole 20 MG Tab, Delayed Release PO SCH (09:00)
[2022-04-15 10:58] VITALS: BP 185/80; PULSE 81
== END 2022-04-15 10:30 | disposition home or self-care (01) | DRG 195 ==
LOC: VM.ED 16:43 → VM.MS 19:55
PROVIDERS: ADMIT Physician Assistant; ATTEND Nurse Practitioner
DX: J18.9 Pneumonia, unspecified organism (principal); E78.00 Pure hypercholesterolemia, unspecified; M25.552 Pain in left hip; M25.561 Pain in right knee; M54.50 Low back pain, unspecified; H54.7 Unspecified visual loss; I10 Essential (primary) hypertension; Z20.822 Contact with and (suspected) exposure to COVID-19; E11.65 Type 2 diabetes mellitus with hyperglycemia; Z79.82 Long term (current) use of aspirin; Z79.84 Long term (current) use of oral hypoglycemic drugs; W19.XXXA Unspecified fall, initial encounter; Z88.0 Allergy status to penicillin; Z79.4 Long term (current) use of insulin; Z79.899 Other long term (current) drug therapy
CPT/HCPCS: 0241U; 36415; 71045; 72100; 73562-RT; 80053; 81001; 82947; 83605; 83735; 84100; 85025; 85610; 85730; 86140; 87040; 96361; 96365; 96366; 96372; 96375; 99223; 99233; 99238; 99285-25; A9270-GY; J0456; J0696; J1650; J1815-GY; J7030; J7050

== ENCOUNTER 2022-05-23 08:33 | Emergency (ER) | payer MEDICARE, OTHER ==
[2022-05-23 09:31] LABS: ANION GAP 13.8 mmol/L (5-15)
[2022-05-23] MEDS ORDERED: Glucagon,Human Recombinant 1 MG Vial IM PRN ×2 (10:04→11:31)
[2022-05-23] MEDS ORDERED: 50% Dextrose in Water 50 ML Syringe IVPUSH PRN ×2 (10:04→11:31)
[2022-05-23] MEDS: Insulin Regular, Human 100 Units/ML 3 ML Vial IVPUSH ONE ×2 (10:23→11:34)
[2022-05-23 10:52] VITALS: BP 149/78; PULSE 82
== END 2022-05-23 12:38 | disposition home or self-care (01) ==
LOC: VM.ED 08:33
DX: R53.1 Weakness (principal); E78.00 Pure hypercholesterolemia, unspecified; I10 Essential (primary) hypertension; E11.9 Type 2 diabetes mellitus without complications; Z88.0 Allergy status to penicillin; Z79.82 Long term (current) use of aspirin; Z79.84 Long term (current) use of oral hypoglycemic drugs; Z79.899 Other long term (current) drug therapy
CPT/HCPCS: 36415; 70450; 71046; 80053; 81001; 82947; 83880; 84484; 85025; 85610; 87086; 93005; 99285; J1815

== ENCOUNTER 2022-05-24 14:06 | Inpatient (IN) | payer MEDICARE, OTHER ==
[2022-05-24 15:06] LABS: PTT,PARTIAL THROMBOPLSTIN TIME 23.3 SEC (20.5-30.9)
[2022-05-24] MEDS ORDERED: Docusate Sodium 100 MG Cap PO PRN (17:55)
[2022-05-24] MEDS ORDERED: Polyethylene Glycol 3350 Powder 17 GM Packet PO PRN (17:55)
[2022-05-24] MEDS ORDERED: Iopamidol 755 Mg/ML 100 ML Bottle IVPUSH ONE (18:28)
[2022-05-24] MEDS ORDERED: Hypromellose 0.3% Ophth Soln 15 ML Bottle EYEBOTH PRN (18:36)
[2022-05-24] MEDS ORDERED: Sodium Chloride 0.9% 1,000 ML IV SCH (18:45)
[2022-05-24] MEDS: Vitamin B Complex Tab PO SCH (20:26)
[2022-05-24] MEDS: Insulin Glarg,Human.Rec.Analog 100 Unit/ML SUBCUT SCH (20:33)
[2022-05-24] MEDS: Triamcinolone Acetonide 0.1% Crm 15 GM Tube TOP SCH (20:34)
[2022-05-24] MEDS: Betamethasone Dipropionate/Clotrimazole 0.05-1% Crm 15 GM Tube TOP SCH (20:34)
[2022-05-25 08:39] LABS: ANION GAP 12.9 mmol/L (5-15)
[2022-05-25] MEDS: Betamethasone Dipropionate/Clotrimazole 0.05-1% Crm 15 GM Tube TOP SCH ×2 (09:11→21:17)
[2022-05-25] MEDS: Triamcinolone Acetonide 0.1% Crm 15 GM Tube TOP SCH ×2 (09:12→21:17)
[2022-05-25] MEDS: Insulin Regular, Human 100 Units/ML 3 ML Vial SUBCUT SCH ×3 (09:30→18:30)
[2022-05-25] MEDS: Hydrochlorothiazide 12.5 MG Cap PO SCH (09:31)
[2022-05-25] MEDS: Multivitamin Tab PO SCH (09:31)
[2022-05-25] MEDS: Vitamin B Complex Tab PO SCH ×2 (09:31→21:21)
[2022-05-25] MEDS: Pantoprazole 20 MG Tab, Delayed Release PO SCH (09:31)
[2022-05-25] MEDS: Lisinopril 10 MG Tab PO SCH (09:31)
[2022-05-25] MEDS: Dextrose 5%-0.9% NaCl 1,000 ML IV SCH ×2 (14:24→18:32)
[2022-05-25] MEDS: Insulin Glarg,Human.Rec.Analog 100 Unit/ML SUBCUT SCH (21:17)
[2022-05-26] MEDS: Dextrose 5%-0.9% NaCl 1,000 ML IV SCH (06:21)
[2022-05-26 08:38] LABS: ANION GAP 13.6 mmol/L (5-15)
[2022-05-26] MEDS: Triamcinolone Acetonide 0.1% Crm 15 GM Tube TOP SCH ×2 (09:26→20:12)
[2022-05-26] MEDS: Betamethasone Dipropionate/Clotrimazole 0.05-1% Crm 15 GM Tube TOP SCH ×2 (09:28→20:12)
[2022-05-26] MEDS: Insulin Regular, Human 100 Units/ML 3 ML Vial SUBCUT SCH ×3 (09:30→17:24)
[2022-05-26] MEDS: Hydrochlorothiazide 12.5 MG Cap PO SCH (09:31)
[2022-05-26] MEDS: Multivitamin Tab PO SCH (09:31)
[2022-05-26] MEDS: Lisinopril 10 MG Tab PO SCH (09:31)
[2022-05-26] MEDS: Pantoprazole 20 MG Tab, Delayed Release PO SCH (09:31)
[2022-05-26] MEDS: Vitamin B Complex Tab PO SCH ×2 (09:31→20:11)
[2022-05-26] MEDS ORDERED: Enalaprilat 1.25 MG/ML SDV IVPUSH ONE (10:00)
[2022-05-26] MEDS: Dextrose 5%-0.45% NaCl 1,000 ML IV SCH (10:51)
[2022-05-26] MEDS: Aspirin 81 MG Tab.Chew PO SCH (10:55)
[2022-05-26] MEDS ORDERED: Lisinopril 10 MG Tab PO ONE (18:24)
[2022-05-26] MEDS: Insulin Glarg,Human.Rec.Analog 100 Unit/ML SUBCUT SCH (20:10)
[2022-05-26] MEDS: Acetaminophen 500 MG Tab PO PRN (20:11)
[2022-05-27] MEDS: Dextrose 5%-0.45% NaCl 1,000 ML IV SCH ×2 (01:57→19:22)
[2022-05-27 07:17] LABS: ANION GAP 10.5 mmol/L (5-15)
[2022-05-27] MEDS: Insulin Regular, Human 100 Units/ML 3 ML Vial SUBCUT SCH ×3 (10:11→18:25)
[2022-05-27] MEDS: Aspirin 81 MG Tab.Chew PO SCH (10:12)
[2022-05-27] MEDS: Pantoprazole 20 MG Tab, Delayed Release PO SCH (10:12)
[2022-05-27] MEDS: Hydrochlorothiazide 12.5 MG Cap PO SCH (10:13)
[2022-05-27] MEDS: Multivitamin Tab PO SCH (10:13)
[2022-05-27] MEDS: Vitamin B Complex Tab PO SCH ×2 (10:13→21:25)
[2022-05-27] MEDS: Triamcinolone Acetonide 0.1% Crm 15 GM Tube TOP SCH ×2 (10:13→21:44)
[2022-05-27] MEDS: Betamethasone Dipropionate/Clotrimazole 0.05-1% Crm 15 GM Tube TOP SCH ×2 (10:22→21:43)
[2022-05-27] MEDS ORDERED: Barium Sulfate 98% Powder for Susp 340 GM Bottle ONE (10:45)
[2022-05-27] MEDS: Lisinopril 10 MG Tab PO SCH (11:06)
[2022-05-27] MEDS: Acetaminophen 500 MG Tab PO PRN ×2 (11:07→17:16)
[2022-05-27] MEDS: Insulin Glarg,Human.Rec.Analog 100 Unit/ML SUBCUT SCH (21:37)
[2022-05-28] MEDS: Acetaminophen 500 MG Tab PO PRN (02:53)
[2022-05-28 05:56] VITALS: PULSE 80
[2022-05-28 07:44] LABS: ANION GAP 12.5 mmol/L (5-15)
[2022-05-28] MEDS: Hydrochlorothiazide 12.5 MG Cap PO SCH (08:15)
[2022-05-28] MEDS: Aspirin 81 MG Tab.Chew PO SCH (08:16)
[2022-05-28] MEDS: Pantoprazole 20 MG Tab, Delayed Release PO SCH (08:16)
[2022-05-28] MEDS: Vitamin B Complex Tab PO SCH (08:16)
[2022-05-28] MEDS: Multivitamin Tab PO SCH (08:16)
[2022-05-28] MEDS: Insulin Regular, Human 100 Units/ML 3 ML Vial SUBCUT SCH (08:17)
[2022-05-28 08:18] VITALS: BP 168/69
[2022-05-28] MEDS: Triamcinolone Acetonide 0.1% Crm 15 GM Tube TOP SCH (08:24)
[2022-05-28] MEDS: Betamethasone Dipropionate/Clotrimazole 0.05-1% Crm 15 GM Tube TOP SCH (08:25)
[2022-05-28] MEDS ORDERED: Lisinopril 20 MG Tab PO SCH (09:00)
== END 2022-05-28 10:45 | DRG 64 ==
LOC: VM.ED 14:06 → VM.MS 16:13
PROVIDERS: ADMIT Nurse Practitioner Family; ATTEND Nurse Practitioner Family
DX: I63.9 Cerebral infarction, unspecified (principal); I63.211 Cerebral infarction due to unspecified occlusion or stenosis of right vertebral artery; R29.6 Repeated falls; E11.9 Type 2 diabetes mellitus without complications; I10 Essential (primary) hypertension; I63.531 Cerebral infarction due to unspecified occlusion or stenosis of right posterior cerebral artery; T79.6XXA Traumatic ischemia of muscle, initial encounter; E11.65 Type 2 diabetes mellitus with hyperglycemia; W06.XXXA Fall from bed, initial encounter; E11.69 Type 2 diabetes mellitus with other specified complication; E78.5 Hyperlipidemia, unspecified; M17.0 Bilateral primary osteoarthritis of knee; R29.810 Facial weakness; R47.89 Other speech disturbances; K21.9 Gastro-esophageal reflux disease without esophagitis; K44.9 Diaphragmatic hernia without obstruction or gangrene; N32.81 Overactive bladder; R29.711 NIHSS score 11; E78.00 Pure hypercholesterolemia, unspecified; R47.02 Dysphasia; Z98.41 Cataract extraction status, right eye; Z98.42 Cataract extraction status, left eye; Z88.0 Allergy status to penicillin; Z88.8 Allergy status to other drugs, medicaments and biological substances; Z79.82 Long term (current) use of aspirin; Z79.84 Long term (current) use of oral hypoglycemic drugs; Z79.4 Long term (current) use of insulin; Z79.899 Other long term (current) drug therapy
CPT/HCPCS: 36415; 51702; 70450; 70496; 70544; 74230; 80053; 81001; 82550; 82947; 83605; 83615; 83735; 84484; 85025; 85610; 85730; 86140; 87086; 87088; 87186; 92611-GN; 97161-GP; 97165-GO; 99284; 99285; A9270-GY; J1815-GY; J3490; J7030; J7042; Q9967; U0002